=== PATIENT | male | born 1975 | race Caucasian/White ===

== ENCOUNTER → 2024-11-29 06:23 | Outpatient (REF) | payer OTHER, SELFPAY | LOC: HWCARD 06:23 | PROVIDERS: ATTENDING PHYSICIAN Orthopaedic Surgery; FAMILY PHYSICIAN Family Medicine | DX: Z01.818 Encounter for other preprocedural examination (principal) | CPT/HCPCS: 93005 ==

== ENCOUNTER 2025-02-24 06:11 | Day surgery (SDC) | payer OTHER, SELFPAY | END 2025-02-24 09:27 | disposition home or self-care (01) | LOC: GI 06:11 | PROVIDERS: ATTENDING PHYSICIAN Internal Medicine | DX: Z12.11 Encounter for screening for malignant neoplasm of colon (principal); K64.8 Other hemorrhoids; D12.3 Benign neoplasm of transverse colon | CPT/HCPCS: 45385; 45380; 88305 ==

== ENCOUNTER → 2025-07-04 09:14 | Outpatient (REF) | payer SELFPAY | LOC: HWRAD 09:14 | PROVIDERS: ATTENDING PHYSICIAN Physician Assistant | DX: E78.5 Hyperlipidemia, unspecified (principal) | CPT/HCPCS: 75571 ==